=== PATIENT | female | born 1945 | race Asian ===

== ENCOUNTER → 2017-02-09 | Outpatient (CLI) | payer MEDICARE, OTHER ==
[~2017-02-09] MED LIST: CARV6 PO; RANO500T3 PO
== END | disposition home or self-care (01) ==
LOC: RADPV 09:07
PROVIDERS: ATTEND Internal Medicine
DX: M51.37 Other intervertebral disc degeneration, lumbosacral region (principal); M47.816 Spondylosis without myelopathy or radiculopathy, lumbar region
CPT/HCPCS: 72100

== ENCOUNTER 2017-05-18 06:40 | Day surgery (SDC) | payer MEDICARE, OTHER ==
[~2017-05-18] VITALS: Ht 165.1 cm; Wt 58.6 kg
[~2017-05-18 06:40] MED LIST changes: +ACETAMINOPHEN/CODEINE 300-30 MG TABLET PO PRN; +CYCLOPENTOLATE HCL 2% 2 ML OPHTHALMIC SOLUTION ONE; +DICLOFENAC SODIUM 0.1% 2.5 ML OPHTHALMIC SOLUTION ONE; +MOXIFLOXACIN HCL 0.5% 3 ML OPHTHALMIC SOLUTION ONE; +PHENYLEPHRINE HCL 2.5% 2 ML OPHTHALMIC SOLUTION ONE; +RINGERS SOLUTION,LACTATED 500 ML IV ONE; +TETRACAINE HCL/PF 0.5% 4 ML OPHTHALMIC SOLUTION ONE; +TETRACAINE HCL/PF 0.5% 4 ML OPHTHALMIC SOLUTION OS ONE
[2017-05-18] MEDS ORDERED: POVIDONE-IODINE 10% 15 ML SOLUTION UD TP ONE (06:41)
[2017-05-18] MEDS ORDERED: HYALURONATE SOD/CHONDROITIN SOD 0.5 ML VIAL IO ONE (06:41)
[2017-05-18] MEDS ORDERED: TETRACAINE HCL VISCOUS 0.5% 5 ML OPHTHALMIC SOLUTION OS ONE (06:41)
[2017-05-18] MEDS ORDERED: LIDOCAINE HCL/PF 1% 2 ML VIAL IARTIC ONE (06:41)
[2017-05-18] MEDS ORDERED: EPINEPHrine 1:1,000 [1 MG/ML] AMP IM ONE (06:41)
[2017-05-18] MEDS ORDERED: BRIMONIDINE TARTRATE 0.15% 5 ML OPHTHALMIC SOLUTION OS ONE (06:41)
[2017-05-18] MEDS ORDERED: HYALURONATE SODIUM 12 MG/ML 0.8 ML SYRINGE IO ONE (06:41)
[2017-05-18] MEDS ORDERED: MIDAZOLAM HCL 2 MG/2 ML VIAL IVP ONE (06:41)
[2017-05-18] MEDS ORDERED: MECL-111 PO (07:14)
[2017-05-18] MEDS ORDERED: ESOM20CA39 PO (07:14)
[2017-05-18] MEDS: CYCLOPENTOLATE HCL 2% 2 ML OPHTHALMIC SOLUTION OS SCH ×3 (07:29→07:41)
[2017-05-18] MEDS: PHENYLEPHRINE HCL 2.5% 2 ML OPHTHALMIC SOLUTION OS SCH ×3 (07:29→07:41)
[2017-05-18] MEDS: MOXIFLOXACIN HCL 0.5% 3 ML OPHTHALMIC SOLUTION OS SCH ×3 (07:30→07:51)
[2017-05-18] MEDS: DICLOFENAC SODIUM 0.1% 2.5 ML OPHTHALMIC SOLUTION OS SCH ×3 (07:30→07:51)
[2017-05-18] MEDS ORDERED: AcetaZOLAMIDE 250 MG TABLET PO ONE (08:15)
== END 2017-05-18 09:30 | disposition home or self-care (01) ==
LOC: SURGERY 06:40
PROVIDERS: ATTEND Ophthalmology
DX: H25.12 Age-related nuclear cataract, left eye (principal); I11.9 Hypertensive heart disease without heart failure; I25.10 Atherosclerotic heart disease of native coronary artery without angina pectoris; K21.9 Gastro-esophageal reflux disease without esophagitis; F32.9 Major depressive disorder, single episode, unspecified; M19.90 Unspecified osteoarthritis, unspecified site; M54.30 Sciatica, unspecified side; Z79.82 Long term (current) use of aspirin; Z98.890 Other specified postprocedural states; Z98.61 Coronary angioplasty status
CPT/HCPCS: 66984; 93005; C1780; J0171; J2250; J3490 ×2; J7120

== ENCOUNTER 2022-08-28 13:43 | Emergency (ER) | payer MEDICARE, OTHER ==
[~2022-08-28] VITALS: Ht 165.1 cm; Wt 59.1 kg
[~2022-08-28 13:43] MED LIST changes: -ACETAMINOPHEN/CODEINE 300-30 MG TABLET PO PRN; -CYCLOPENTOLATE HCL 2% 2 ML OPHTHALMIC SOLUTION ONE; -DICLOFENAC SODIUM 0.1% 2.5 ML OPHTHALMIC SOLUTION ONE; +ESOM20CA39 PO; +MECL-160 PO; -MOXIFLOXACIN HCL 0.5% 3 ML OPHTHALMIC SOLUTION ONE; -PHENYLEPHRINE HCL 2.5% 2 ML OPHTHALMIC SOLUTION ONE; +RANO500T27 PO; -RANO500T3 PO; -RINGERS SOLUTION,LACTATED 500 ML IV ONE; -TETRACAINE HCL/PF 0.5% 4 ML OPHTHALMIC SOLUTION ONE; -TETRACAINE HCL/PF 0.5% 4 ML OPHTHALMIC SOLUTION OS ONE
[2022-08-28] MEDS ORDERED: ASPI81TA87 PO (13:46)
[2022-08-28] MEDS ORDERED: RANO500T27 PO (13:46)
[2022-08-28 14:56] VITALS: BP 132/86
[2022-08-28] MEDS ORDERED: KETOROLAC TROMETHAMINE 60 MG/2 ML VIAL IM ONE (15:00)
[2022-08-28] MEDS ORDERED: ACETAMINOPHEN/CODEINE 300-30 MG TABLET PO ONE (15:00)
[2022-08-28] MEDS ORDERED: ACET-2080 PO (16:18)
[2022-08-28] MEDS ORDERED: IBUP-45 PO (16:18)
== END 2022-08-28 16:38 | disposition home or self-care (01) ==
LOC: EMS 14:05
DX: S83.92XA Sprain of unspecified site of left knee, initial encounter (principal); I10 Essential (primary) hypertension; W01.0XXA Fall on same level from slipping, tripping and stumbling without subsequent striking against object, initial encounter; Y93.89 Activity, other specified; Y92.89 Other specified places as the place of occurrence of the external cause; Y99.8 Other external cause status
CPT/HCPCS: 99283; 29505; 73562; 96372; J1885

== ENCOUNTER 2025-05-21 17:39 | Emergency (ER) | payer MEDICARE, OTHER ==
[~2025-05-21] VITALS: Ht 170.2 cm; Wt 49.0 kg
[~2025-05-21 17:39] MED LIST changes: +ACET-2080 PO; +ASPI81TA87 PO; +CARV-165 PO; -CARV6 PO; -ESOM20CA39 PO; +IBUP-45 PO; -MECL-160 PO
[2025-05-21 17:47] VITALS: BP 110/85; PULSE 84; RESP 18; TEMP 98.1; O2SAT 98
[2025-05-21] MEDS: IBUPROFEN 200 MG TABLET PO ONE (19:14)
[2025-05-21] MEDS: ACETAMINOPHEN/CODEINE 300-30 MG TABLET PO ONE (19:14)
[2025-05-21] MEDS ORDERED: VALA500T42 PO (19:27)
[2025-05-21] MEDS ORDERED: ACET-2080 PO ×2 (19:27)
[2025-05-21] MEDS ORDERED: MUPI1OIN5 TP (19:27)
== END 2025-05-21 19:45 | disposition home or self-care (01) ==
LOC: EMS 17:39
DX: B02.9 Zoster without complications (principal); I10 Essential (primary) hypertension; Z79.624 Long term (current) use of inhibitors of nucleotide synthesis; Z79.82 Long term (current) use of aspirin; Z79.899 Other long term (current) drug therapy
CPT/HCPCS: 99283